=== PATIENT | male | born 1965 | race Caucasian/White ===

== ENCOUNTER 2018-01-02 17:01 | Emergency (ER) | payer MEDICAID | END 2018-01-02 17:30 | disposition left against medical advice (07) | DX: Z53.21 Procedure and treatment not carried out due to patient leaving prior to being seen by health care provider (principal) ==

== ENCOUNTER 2018-01-03 13:02 | Emergency (ER) | payer MEDICAID ==
--- NOTE | 2018-01-03 13:12 | EDPHY ---
H & P Time Seen by Provider: 01/03/18 13:04 HPI/ROS: HPI Benzodiazepine overdose, suicidal ideation from the [facility]. 52-year-old male on an M1 hold from the [facility] with [employer] police and by ambulance. Patient has a history of substance abuse. He was seen at [facility] yesterday for gabapentin withdrawal. He states that he was initially seen here and then wound up going to [facility]. Unclear as to the reasoning for this. He reports that he took a total of 6, 10 mg Valium tablets between getting up early this morning and approximately 12 noon. Please received a call from [facility] that the patient was intoxicated. They brought him to the [facility]. Once there he threatened to run away and jump in front of a truck. He was then placed on an M1 hold by the [facility] staff and transported here. Currently the patient denies any suicidal ideation. He tells me in "I was just messing around with them and I am not suicidal". He denies any other ingestion then the Valium earlier today. He is cooperative currently. ROS: Constitutional: No fever, no chills. No weakness. Eyes: No discharge. No changes in vision. ENT: No sore throat. No nasal congestion or rhinorrhea. Respiratory: No cough. No shortness of breath. Cardiac: No chest pain, no palpitations. Gastrointestinal: No abdominal pain, no vomiting, no diarrhea. Genitourinary: No hematuria. No dysuria or increased frequency with urination. Musculoskeletal: No back pain. No neck pain. No myalgias or arthralgias. Skin: No rashes. Neurological: No headache. No focal weakness or altered sensation. Past medical history: Polysubstance abuse. Social history: Currently here by himself. History of polysubstance abuse. Smoker Physical Exam: General Appearance: Alert, mildly agitated. This patient is responding to questions appropriately and in full sentences. This patient appears well- hydrated and well-nourished. Eyes: Pupils equal and round no pallor or injection. No lid edema, erythema or injection. Respiratory: There are no retractions, lungs are clear to auscultation with good air movement bilaterally. Cardiovascular: Regular rate and rhythm. No murmur. Gastrointestinal: Abdomen is soft and nontender, no masses, bowel sounds normal. No focal tenderness at McBurney's point. No Nair sign. Neurological: Motor sensory function is grossly intact. Cranial nerves are normal. Gait is normal. Skin: Warm and dry, no rashes. Musculoskeletal: Neck is supple and nontender. Extremities are symmetrical. All joints range without pain or impingement. Psychiatric: As above. No depression. Database: EKG: Imaging: Procedures: Emergency department course: Triage vital signs reviewed. Appropriate blood work obtained and sent. Behavioral Health notified. 2:20 p.m., patient medically cleared. EPS notified for evaluation. 3:00 p.m., patient awaiting behavioral health evaluation. Care turned over to Dr. Swathi James at this time. Differential Diagnosis: The differential diagnosis on this patient includes but is not limited to situational depression, polysubstance abuse. Suicidal ideation unlikely. This represents a partial list of diagnoses considered. These considerations are based on history, physical exam, past history, reassessment and diagnostic testing. (Nilton Cardoso) Constitutional: Initial Vital Signs Temperature (C) 36.7 C 01/03/18 13:10 Heart Rate 83 01/03/18 13:10 Respiratory Rate 18 01/03/18 13:10 Blood Pressure 123/92 H 01/03/18 13:10 O2 Sat (%) 91 L 01/03/18 13:10 O2 Delivery Mode Room Air O2 (L/minute) 95 Allergies/Adverse Reactions: No Known Allergies Allergy (Verified 01/02/18 17:12) Home Medications: Medication Instructions Recorded Valium 01/02/18 Medical Decision Making Other Provider: I assumed care of this patient from Dr. Cardoso at 3:00 p.m.. He has undergone mental health evaluation and placement is being sought. He has been stable under my care. He is being transferred to Dr. Umana at 11:00 p.m., change of shift. Mental health evaluation team tells me that placement is difficult because of his methadone. Apparently the methadone dosage is crucial. It is their impression that he takes 60 mg daily. However, when I asked the patient he tells me that he takes 30 mg of methadone daily and that it is prescribed by Dr. Tank Barreto at [facility] in [place]. I am unable to access the [place] PDMP program to verify this dosage and the pharmacies are not currently open. In the morning his dose can be verified. 11:50 p.m. I was able to verify the methadone dose for Mr. Vazquez. He takes 30 mg daily. This information is being faxed to [employer]. (Swathi James ) 1:30 a.m.- The patient has become slightly more agitated, throwing things around his room. It was discovered that he was hiding several personal objects including his keys under his mattress. He said he was going to slit his throat with his keys. He has been given a dose of Zyprexa in all items have been removed from his room. 6:40 a.m.- The patient has been stable for the last several hours. He is awaiting mental health placement. The case will be signed out at 7:00 a.m. To the oncoming provider Dr. Maier. (Elvira Umana) I assumed care of the patient at 7 o'clock in the morning pending psychiatric disposition. Update at 11 o'clock in the morning, the patient has been accepted for inpatient psychiatric hospitalization at [facility] by Dr. Collado. I have filled out the EMTALA transfer form. (Shiraz Maier) - Data Points Laboratory Results: Laboratory Results 01/03/18 13:25 01/03/18 13:25 Medications Given: Discontinued Medications Ondansetron HCl (Zofran Odt) 4 mg PO EDNOW ONE Stop: 01/03/18 15:12 Last Admin: 01/03/18 15:18 Dose: 4 mg Departure - Departure Disposition: Other Psych, Not Anum Clinical Impression: Polysubstance abuse, Suicidal ideation Condition: Good Referrals: Patient,NotPresent [Unknown] - As per Instructions
[2018-01-03 13:40] LABS: PLATELET COUNT 262 10^3/uL (150-400)
[2018-01-03] MEDS ORDERED: ONDANSETRON DISINTEGRATING 4 MG TAB PO ONE (15:11)
[2018-01-04] MEDS ORDERED: OLANZapine DISINTEGR 10 MG TAB ONE (01:14)
[2018-01-04 13:11] VITALS: BP 126/100
== END 2018-01-04 13:12 ==
LOC: EDUNIT#
DX: T42.4X2A Poisoning by benzodiazepines, intentional self-harm, initial encounter (principal); F19.10 Other psychoactive substance abuse, uncomplicated
CPT/HCPCS: 80305; G0480

== ENCOUNTER 2018-06-19 22:21 | Emergency (ER) | payer MEDICAID ==
--- NOTE | 2018-06-19 22:32 | EDPHY ---
H & P Stated Complaint: [id number] lac - Personal History Current Tetanus Diphtheria and Acellular Pertussis (TDAP): Yes - Medical/Surgical History Hx Asthma: No Hx Chronic Respiratory Disease: No Hx Diabetes: No Hx Cardiac Disease: No Hx Renal Disease: No Hx Cirrhosis: No Hx Alcoholism: Yes Hx HIV/AIDS: No Hx Splenectomy or Spleen Trauma: No Other PMH: Tremors. Hep C., alcoholism - Social History Smoking Status: Current every day smoker Time Seen by Provider: 06/20/18 07:39 HPI/ROS: Chief Complaint: Alcohol intoxication, fall, eyebrow laceration HPI: 53-year-old intoxicated male had a mechanical trip and fall, struck his forehead on the ground. He sustained a laceration above his right eyebrow. He denies loss of consciousness. Admits to drinking alcohol tonight. No neck pain. No numbness or weakness. Patient has been cooperative with EMS but is refusing wound closure at this time. Denies vision or hearing changes. He is hep C positive. Patient states that he is suicidal and does not want to live anymore. He does not have a specific plan at this time. ROS: 10 systems were reviewed and were negative except those elements noted in the HPI. PMH: Alcohol abuse, hepatitis-C Social History: Positive smoking, positive alcohol, positive marijuana Family History: non-contributory Physical Exam: Gen: Awake, Alert, Airway Intact, slurred speech, smells of alcohol HEENT: Head: 1.5 cm horizontal laceration above his right eyebrow. No bony tenderness or step-offs Eyes: PERRLA, EOMI Nose: No epistaxis Mouth: Normal dentition, Airway patent Face: No deformity Neck: non-tender, no stepoff, Full ROM without pain Chest: non-tender, lungs CTA Heart: normal heart tones Abd: soft, non-tender, atraumatic Pelvis: non-tender, stable to AP and Lateral compression Back: atraumatic, no midline tenderness Ext: atramatic, full ROM Skin: no rash Neuro: CN II-XII intact, Strength 5/5 in all extremities, sensation intact in all extremities (Tank Estrada) Constitutional: Initial Vital Signs Temperature (C) 36.4 C 06/19/18 22:23 Heart Rate 82 06/19/18 22:23 Respiratory Rate 16 06/19/18 22:23 Blood Pressure 116/80 06/19/18 22:23 O2 Sat (%) 92 06/19/18 22:23 O2 Delivery Mode Room Air Allergies/Adverse Reactions: No Known Allergies Allergy (Verified 06/19/18 22:23) Home Medications: Medication Instructions Recorded Valium 01/02/18 Medical Decision Making Procedures: Procedure: Laceration repair. Verbal consent was obtained from the patient. The 1.5 cm laceration on the right eyebrow was anesthetized in the usual fashion. The wound was irrigated, draped and explored to its base with a gloved finger. There were no deep structures involved. No tendon injury was identified. The wound was repaired with 4, 6-0 Ethilon simple interrupted sutures. The wound repair was uncomplicated. The procedure was performed by myself. (Tank Estrada) ED Course/Re-evaluation: Care was transferred to sc at 7:00 a.m.. I saw the patient at 7:10 a.m. A.m.. He has a little bit shaky and would like an Ativan or shot of whiskey. He is otherwise stable. He is given 1 mg of Ativan orally At 7:30 a.m. Patient has been evaluated. He denies any suicidal ideation at this point. He does not wish to go to the [facility]. Mental health feels that this patient is appropriate for outpatient therapy. The M1 hold is lifted and the patient will be discharged. (Irving Levy) Patient's lacerations been repaired. He is clinically intoxicated. Have received a phone call from his niece was concerned about his mental state. Patient placed on M1 hold. Patient is pending mental health evaluation when he ricardo up. Patient signed out to Dr. Levy pending sober mental health evaluation. (Tank Estrada) - Data Points Laboratory Results: Laboratory Results 06/20/18 01:26 06/20/18 01:26 Medications Given: Discontinued Medications Lorazepam (Ativan) 1 mg PO EDNOW ONE Stop: 06/20/18 07:22 Last Admin: 06/20/18 07:27 Dose: 1 mg Departure - Departure Disposition: Home, Routine, Self-Care Clinical Impression: Eyebrow laceration, Alcohol intoxication, Facial contusion Condition: Fair Instructions: Care For Your Stitches (ED), Laceration (ED), Alcohol Intoxication (ED), Facial Contusion (ED) Additional Instructions: Sutures need to be removed in 5 days. Return for any thoughts of harming herself or others. Follow up with mental health using resources that they have provided Referrals: Patient,NotPresent [Unknown] - As per Instructions [facility] [Outside] - As per Instructions
[2018-06-20 01:35] LABS: PLATELET COUNT 149 10^3/uL (150-400)
[2018-06-20] MEDS ORDERED: LORazepam 1 MG TAB PO ONE (07:21)
[2018-06-20 07:23] VITALS: BP 143/88
--- NOTE | 2018-06-20 08:15 | ASMTTCLDSP ---
TLC Discharge Disposition Disposition: Answers: Discharge If Answers: Yes DISCHARGED: Patient/family given suicide hotline info & SAMHSA brochure? Disposition Notes: Notes: In consultation with [facility] ED, Physician, Irving Levy it was concurred that pt does not appear to meet 27-65 criteria requiring psychiatric hospitalization as pt does not appear to be at risk of harm to self/others/gravely disabled due to a mental illness condition. Pt verbalized a plan to return home and f/u with outpt services with his Psychiatrist though [facility]. Pt was offered voluntary mental health admission but he declined. Pt was also offered option of a non-medical detox and he declined. Pt stated he is able to commit to keeping himself safe, denied thoughts of self harm or harm to others. Pt was given local hotline information, 24 hour crisis information and SAMHSA brochure, After and Attempt and encouraged to f/u with [facility]. Discharge Concerns/Recommendations: Notes: Pt to f/u with outpt services with regular provider through [facility]. Date and time M1 hold 06/20/2018 07:40 AM vacated (time format is hh:mm): Type of Hold: Answers: M1/72-hour Hold Hold initiated by: Answers: ED Physician Date Signed: 06/20/2018 08:14 AM Electronically Signed By:Ailyn Guzman
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
== END 2018-06-20 07:54 | disposition home or self-care (01) ==
LOC: EDUNIT#
PROC: 0HQ1XZZ Repair Face Skin, External Approach (ICD-10-PCS; principal; 2018-06-19)
PROC: GZ11ZZZ Psychological Tests, Personality and Behavioral (ICD-10-PCS; 2018-06-19)
DX: S01.111A Laceration without foreign body of right eyelid and periocular area, initial encounter (principal); F10.929 Alcohol use, unspecified with intoxication, unspecified; B19.20 Unspecified viral hepatitis C without hepatic coma; W01.198A Fall on same level from slipping, tripping and stumbling with subsequent striking against other object, initial encounter; Y92.9 Unspecified place or not applicable; Y93.9 Activity, unspecified; Y99.9 Unspecified external cause status
CPT/HCPCS: 80305; G0480

== ENCOUNTER 2018-09-01 02:54 | Emergency (ER) | payer MEDICAID ==
[2018-09-01 03:00] VITALS: BP 142/74
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
== END 2018-09-01 04:15 | disposition home or self-care (01) ==
LOC: EDUNIT#
DX: F41.9 Anxiety disorder, unspecified (principal)

== ENCOUNTER 2018-09-09 11:52 | Emergency (ER) | payer MEDICAID ==
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
[2018-09-09 13:29] VITALS: BP 132/88
== END 2018-09-09 13:32 ==
LOC: EDUNIT#
DX: S00.81XA Abrasion of other part of head, initial encounter (principal); S00.83XA Contusion of other part of head, initial encounter; F10.920 Alcohol use, unspecified with intoxication, uncomplicated; Y04.0XXA Assault by unarmed brawl or fight, initial encounter; Z59.0 Homelessness

== ENCOUNTER 2018-09-22 19:34 | Emergency (ER) | payer MEDICAID ==
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
[2018-09-22 20:02] LABS: PLATELET COUNT 206 10^3/uL (150-400)
[2018-09-22] MEDS ORDERED: LORazepam 1 MG TAB PO ONE (20:34)
[2018-09-22] MEDS ORDERED: LORazepam 1 MG TAB ONE (20:35)
[2018-09-23] MEDS ORDERED: OLANZapine 5 MG TAB PO ONE (00:48)
[2018-09-23] MEDS ORDERED: LORazepam 1 MG TAB PO ONE (06:22)
[2018-09-23] MEDS ORDERED: IBUPROFEN 800 MG TAB PO ONE (06:22)
[2018-09-23] MEDS ORDERED: chlordiazePOXIDE 25 MG CAP PO ONE (06:22)
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
--- NOTE | 2018-09-23 07:36 | ASMTTCLDSP ---
TLC Discharge Disposition Disposition: Answers: Discharge If Answers: Yes DISCHARGED: Patient/family given suicide hotline info & SAMHSA brochure? Disposition Notes: Notes: Pt stated commitment or ability to keep self safe, denied thoughts of self harm or harm to others. Pt expressed a desire to f/u with getting back on Methadone in [place]. Pt was given local hotline information and [employer] brochure After an Attempt and encouraged to follow up with [facility] and methadone treatment in [place]. Discharge Concerns/Recommendations: Notes: In consultation with [facility] ED physician, Dave Maradiaga MD, Dr. Maradiaga concurred that pt does not appear to meet 27-65 criteria requiring psychiatric hospitalization as pt does not appear to be an imminent risk of harm to self/others/gravely disabled due to a mental illness condition. Dr. Maradiaga provided verbal order read back vacating M1 hold at 0715 hrs. Was patient given the Answers: Not applicable Inpatient Behavioral Health Prohibited Belongings List while in the ED? Psychiatrist vacating M1 Dave Maradiaga MD Hold: Date and time M1 hold 09/23/2018 07:15 AM vacated (time format is hh:mm): Type of Hold: Answers: M1/72-hour Hold Hold initiated by: Answers: Police Date Signed: 09/23/2018 07:36 AM Electronically Signed By:Juan Galeana
[2018-09-23 07:44] VITALS: BP 151/92
== END 2018-09-23 08:00 | disposition home or self-care (01) ==
LOC: EDUNIT#
DX: R45.851 Suicidal ideations (principal); R45.850 Homicidal ideations; F10.920 Alcohol use, unspecified with intoxication, uncomplicated; F12.90 Cannabis use, unspecified, uncomplicated
CPT/HCPCS: 80305; G0480

== ENCOUNTER 2018-09-23 17:22 | Emergency (ER) | payer MEDICAID ==
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
[2018-09-23 18:39] VITALS: BP 128/80
== END 2018-09-23 18:38 | disposition home or self-care (01) ==
LOC: EDUNIT#
PROC: 09QKXZZ Repair Nasal Mucosa and Soft Tissue, External Approach (ICD-10-PCS; principal; 2018-09-23)
DX: S02.2XXA Fracture of nasal bones, initial encounter for closed fracture (principal); S05.11XA Contusion of eyeball and orbital tissues, right eye, initial encounter; Y04.2XXA Assault by strike against or bumped into by another person, initial encounter; Y92.9 Unspecified place or not applicable; Y99.9 Unspecified external cause status; Y93.9 Activity, unspecified; Z59.0 Homelessness

== ENCOUNTER 2018-09-25 18:32 | Inpatient (IN) | payer MEDICAID ==
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
[2018-09-25] MEDS ORDERED: ONDANSETRON 4 MG/2 ML VIAL IVP ONE (19:31)
[2018-09-25 20:11] LABS: PLATELET COUNT 227 10^3/uL (150-400)
[2018-09-25] MEDS ORDERED: LORazepam 1 MG TAB PO PRN (20:55)
[2018-09-25] MEDS ORDERED: LORazepam 2 MG/ML INJ ONE (20:56)
[2018-09-25] MEDS: LORazepam 2 MG/ML INJ IVP PRN ×2 (21:01→23:44)
[2018-09-25] MEDS ORDERED: ONDANSETRON DISINTEGRATING 4 MG TAB PO PRN (22:16)
[2018-09-25] MEDS ORDERED: ACETAMINOPHEN 325 MG TAB PO PRN (22:16)
[2018-09-25] MEDS ORDERED: ONDANSETRON 4 MG/2 ML VIAL IVP PRN (22:16)
[2018-09-25] MEDS ORDERED: LORazepam 2 MG/ML INJ IVP PRN (22:20)
[2018-09-25] MEDS ORDERED: FLUMAZENIL 0.5 MG/5 ML MDV IVP PRN (22:20)
[2018-09-25] MEDS ORDERED: THIAMINE HCL 500 MG in NS 100 ML IV SCH (23:45)
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
[2018-09-26] MEDS ORDERED: D5W 1/2 NS 1,000 ML IV SCH (00:15)
[2018-09-26] MEDS ORDERED: NS 1,000 ML IV SCH (00:30)
[2018-09-26] MEDS: chlordiazePOXIDE 25 MG CAP PO SCH ×2 (00:47→04:54)
--- NOTE | 2018-09-26 01:12 | PDGENHP ---
History and Physical - History of Present Illness History Information - Allergies/Home Medication List Allergies/Adverse Reactions: No Known Allergies Allergy (Verified 09/09/18 12:01) Home Medications: NK [No Known Home Meds] 09/25/18 [Last Taken Unknown] - Social History Smoking Status: Former smoker Review of Systems Review of Systems: Physical Exam Physical Exam: Temp Pulse Resp BP Pulse Ox 36.8 C 79 24 H 112/65 94 09/25/18 23:30 09/26/18 00:00 09/26/18 00:00 09/26/18 00:00 09/26/18 00:00 Lab Data & Imaging Review 09/25/18 18:50 09/25/18 18:50 WBC 7.59 10^3/uL (3.80-9.50) 09/25/18 18:50 RBC 4.28 10^6/uL (4.40-6.38) L 09/25/18 18:50 Hgb 14.0 g/dL (13.7-17.5) 09/25/18 18:50 Hct 41.0 % (40.0-51.0) 09/25/18 18:50 MCV 95.8 fL (81.5-99.8) 09/25/18 18:50 MCH 32.7 pg (27.9-34.1) 09/25/18 18:50 MCHC 34.1 g/dL (32.4-36.7) 09/25/18 18:50 RDW 13.0 % (11.5-15.2) 09/25/18 18:50 Plt Count 227 10^3/uL (150-400) 09/25/18 18:50 MPV 10.6 fL (8.7-11.7) 09/25/18 18:50 Neut % (Auto) 69.6 % (39.3-74.2) 09/25/18 18:50 Lymph % (Auto) 20.0 % (15.0-45.0) 09/25/18 18:50 [place] % (Auto) 7.0 % (4.5-13.0) 09/25/18 18:50 Eos % (Auto) 2.2 % (0.6-7.6) 09/25/18 18:50 Baso % (Auto) 0.9 % (0.3-1.7) 09/25/18 18:50 Nucleat RBC Rel Count 0.0 % (0.0-0.2) 09/25/18 18:50 Absolute Neuts (auto) 5.28 10^3/uL (1.70-6.50) 09/25/18 18:50 Absolute Lymphs (auto) 1.52 10^3/uL (1.00-3.00) 09/25/18 18:50 Absolute Monos (auto) 0.53 10^3/uL (0.30-0.80) 09/25/18 18:50 Absolute Eos (auto) 0.17 10^3/uL (0.03-0.40) 09/25/18 18:50 Absolute Basos (auto) 0.07 10^3/uL (0.02-0.10) 09/25/18 18:50 Absolute Nucleated RBC 0.00 10^3/uL (0-0.01) 09/25/18 18:50 Immature Gran % 0.3 % (0.0-1.1) 09/25/18 18:50 Immature Gran # 0.02 10^3/uL (0.00-0.10) 09/25/18 18:50 Sodium 136 mEq/L (135-145) 09/25/18 18:50 Potassium 3.8 mEq/L (3.5-5.2) 09/25/18 18:50 Chloride 103 mEq/L (97-110) 09/25/18 18:50 Carbon Dioxide 24 mEq/l (22-31) 09/25/18 18:50 Anion Gap 9 mEq/L (6-14) 09/25/18 18:50 BUN 21 mg/dL (7-23) 09/25/18 18:50 Creatinine 0.9 mg/dL (0.7-1.3) 09/25/18 18:50 Estimated GFR > 60 09/25/18 18:50 Glucose 93 mg/dL (70-100) 09/25/18 18:50 Calcium 8.9 mg/dL (8.5-10.4) 09/25/18 18:50 Ethyl Alcohol 49 mg/dL (0-10) H 09/25/18 18:50 Assessment & Plan Assessment: Alcohol withdrawal (Acute) Subdural hemorrhage following injury (Acute)
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
[2018-09-26] MEDS: HYDROCODONE/APAP 5/325 TAB PO PRN ×2 (04:53→10:50)
[2018-09-26 05:57] LABS: PLATELET COUNT 177 10^3/uL (150-400)
[2018-09-26 06:13] LABS: PROTIME(PATIENT) 13.4 SEC (12.0-15.0)
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
[2018-09-26] MEDS: TRANEXAMIC ACID 650 MG TAB PO SCH ×3 (10:41→10:48)
[2018-09-26 11:43] VITALS: BP 107/68
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
[2018-09-28] MEDS ORDERED: THIAMINE HCL 100 MG TAB PO SCH (22:20)
== END 2018-09-26 12:54 | disposition left against medical advice (07) | DRG 55 ==
LOC: EDUNIT# → F2N 23:32
PROVIDERS: ADMIT Internal Medicine; ATTEND Surgery
DX: S06.5X1A Traumatic subdural hemorrhage with loss of consciousness of 30 minutes or less, initial encounter (principal); B19.20 Unspecified viral hepatitis C without hepatic coma; S02.2XXA Fracture of nasal bones, initial encounter for closed fracture; I10 Essential (primary) hypertension; F10.230 Alcohol dependence with withdrawal, uncomplicated; Y04.0XXA Assault by unarmed brawl or fight, initial encounter; Z59.0 Homelessness
CPT/HCPCS: 96374; 97161-GP; 97530-GP; G0480; J2060; J2405; J3411

== ENCOUNTER 2018-09-27 14:26 | Inpatient (IN) | payer MEDICAID ==
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
[2018-09-27] MEDS ORDERED: LORazepam 2 MG/ML INJ IVP PRN ×2 (15:09→16:22)
[2018-09-27] MEDS ORDERED: LORazepam 1 MG TAB PO PRN ×2 (15:09→16:05)
[2018-09-27] MEDS ORDERED: LORazepam 1 MG TAB ONE (15:13)
[2018-09-27] MEDS ORDERED: LORazepam 1 MG TAB PO ONE (15:14)
[2018-09-27] MEDS ORDERED: FLUMAZENIL 0.5 MG/5 ML MDV IVP PRN (16:22)
[2018-09-27] MEDS ORDERED: PROMETHAZINE HCL 25 MG/ML INJ IVP PRN (16:25)
[2018-09-27] MEDS ORDERED: traMADol 50 MG TAB PO PRN (16:25)
[2018-09-27] MEDS ORDERED: ONDANSETRON 4 MG/2 ML VIAL IVP PRN (16:25)
[2018-09-27] MEDS: oxyCODONE IR 5 MG TAB PO PRN ×2 (16:43→22:09)
[2018-09-27] MEDS: ACETAMINOPHEN 325 MG TAB PO PRN ×2 (16:43→22:09)
[2018-09-27] MEDS: LORazepam 2 MG/ML INJ IVP PRN ×2 (17:32→22:10)
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
[2018-09-28 04:50] LABS: PLATELET COUNT 165 10^3/uL (150-400)
[2018-09-28] MEDS: oxyCODONE IR 5 MG TAB PO PRN (08:28)
[2018-09-28] MEDS ORDERED: THIAMINE HCL 500 MG in NS 100 ML IV SCH (09:00)
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
[2018-09-28] MEDS ORDERED: hydrOXYzine HCL 25 MG TAB PO PRN (09:50)
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
[2018-09-28] MEDS: ACETAMINOPHEN 325 MG TAB PO SCH ×2 (12:59→17:31)
[2018-09-28] MEDS: LORazepam 1 MG TAB PO PRN ×2 (12:59→17:30)
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
[2018-09-28 15:26] VITALS: BP 119/73
[2018-09-28] MEDS ORDERED: IBUPROFEN 600 MG TAB PO PRN (16:20)
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
[2018-09-30] MEDS ORDERED: THIAMINE HCL 100 MG TAB PO SCH (09:00)
== END 2018-09-28 19:44 | disposition left against medical advice (07) | DRG 55 ==
LOC: UNDODISOB 16:02 → F3N 16:05 → OBSVTOIN 09-28 09:57
PROVIDERS: ADMIT Internal Medicine; ATTEND Internal Medicine
DX: S06.5X0A Traumatic subdural hemorrhage without loss of consciousness, initial encounter (principal); S06.6X0A Traumatic subarachnoid hemorrhage without loss of consciousness, initial encounter; Y04.0XXA Assault by unarmed brawl or fight, initial encounter; Y92.89 Other specified places as the place of occurrence of the external cause; F10.20 Alcohol dependence, uncomplicated; G89.29 Other chronic pain; R25.1 Tremor, unspecified; B19.20 Unspecified viral hepatitis C without hepatic coma; F41.9 Anxiety disorder, unspecified; F17.210 Nicotine dependence, cigarettes, uncomplicated
CPT/HCPCS: G0378; J2060; J2405; J3411

== ENCOUNTER 2018-12-06 04:54 | Emergency (ER) | payer MEDICAID, OTHER ==
[2018-12-06] MEDS ORDERED: NS 1,000 ML IV ONE (05:00)
[2018-12-06] MEDS ORDERED: LORazepam 2 MG/ML INJ IVP ONE (05:01)
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
[2018-12-06 05:44] LABS: INR 1.08 (0.83-1.16); PROTIME(PATIENT) 13.6 SEC (12.0-15.0)
[2018-12-06] MEDS ORDERED: IOPAMIDOL (ISOVUE-300) 100 ML BTL ONE (05:55)
[2018-12-06 06:02] LABS: PLATELET COUNT 156 10^3/uL (150-400)
[2018-12-06 07:15] VITALS: BP 141/101
== END 2018-12-06 07:21 | disposition home or self-care (01) ==
LOC: EDUNIT# → EDBD
DX: S01.01XA Laceration without foreign body of scalp, initial encounter (principal); S22.42XA Multiple fractures of ribs, left side, initial encounter for closed fracture; S30.1XXA Contusion of abdominal wall, initial encounter; S20.212A Contusion of left front wall of thorax, initial encounter; M25.572 Pain in left ankle and joints of left foot; Y04.8XXA Assault by other bodily force, initial encounter; Y92.513 Shop (commercial) as the place of occurrence of the external cause; Z87.891 Personal history of nicotine dependence
CPT/HCPCS: 96374; G0480; J2060; Q9967

== ENCOUNTER 2018-12-11 14:40 | Emergency (ER) | payer MEDICAID ==
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
[2018-12-11 15:54] VITALS: BP 120/80
== END 2018-12-11 15:50 | disposition home or self-care (01) ==
LOC: EDUNIT# → EEVIPCON 14:40
PROC: 0HQ1XZZ Repair Face Skin, External Approach (ICD-10-PCS; principal; 2018-12-11)
DX: S02.2XXA Fracture of nasal bones, initial encounter for closed fracture (principal); S01.81XA Laceration without foreign body of other part of head, initial encounter; Y04.0XXA Assault by unarmed brawl or fight, initial encounter

== ENCOUNTER 2019-01-18 00:25 | Emergency (ER) | payer MEDICAID | END 2019-01-18 02:23 | disposition home or self-care (01) ==

== ENCOUNTER 2019-01-23 10:40 | Emergency (ER) | payer MEDICAID | END 2019-01-23 22:16 | disposition home or self-care (01) ==